=== PATIENT | male | born 1980 | race Caucasian/White ===

== ENCOUNTER 2022-08-25 14:30 | Outpatient (CLI) | payer MEDICAID, SELFPAY | END 2022-08-25 14:31 | disposition home or self-care (01) | LOC: SLEEP 08-26 15:21 | PROVIDERS: Visit Provider Nurse Practitioner Family | DX: R53.83 Other fatigue (principal); G47.10 Hypersomnia, unspecified | CPT/HCPCS: G0399 ==

== ENCOUNTER 2024-07-19 16:51 | Outpatient (CLI) | payer MEDICAID, SELFPAY ==
--- NOTE | 2024-07-19 16:59 | CT_ITS ---
WS: [id number] CT SINUSES TECHNIQUE: Noncontrast CT of the paranasal sinuses with coronal and sagittal reformatted images. CLINICAL INFORMATION: CHRONIC RHINITIS, DISORDERS OF NOSE AND NASAL SINUSES COMPARISON: None. DLP: 378.[address] scans at [facility] use at least one of these dose optimization techniques: automated e xposure control; mA and/or kV adjustment per patient size (includes targeted exams where dose is matc hed to clinical indication); or iterative reconstruction. FINDINGS: Mild LEFT RIGHT nasal septal deviation measuring 2 to 3 mm. Rightward directed nasal spur. Mild narro wing of the ostiomeatal units bilaterally which are patent. Bilateral Lee cells contribute to osti omeatal unit narrowing. Retention cyst inferior LEFT maxillary sinus measuring 10 mm. Maxillary sinus es are well aerated. Mild mucosal thickening in the ethmoid air cells. Frontal sinuses are well aerat ed. Retention cyst in the RIGHT sphenoid sinus measuring 12 mm. Mucosal thickening with opacification of the RIGHT sphenoid sinus ostia. Mild mucosal thickening with narrowing of the LEFT sphenoid sinus ost ia. Mastoid air cells are well aerated. Normal posterior nasopharynx. Normal parapharyngeal fat. Norm al pterygoid plates. Normal pterygopalatine fossa. CT/CT sinus wo con* [id number] IMPRESSION: 1. Mild LEFT RIGHT nasal septal deviation with a rightward directed spur. Nasa l septal deviation measures 2 to 3 mm. 2. Mild narrowing of the ostiomeatal units bilaterally with bilateral Lee c ells. 3. Dependent retention cyst LEFT maxillary sinus 2 mm. 4. Mild mucosal thickening ethmoid air cells. 5. Retention cyst RIGHT sphenoid sinus measuring 12 mm with opacification of t he RIGHT greater than LEFT sphenoid sinus ostia. 6. Mastoid air cells are well aerated.
== END 2024-07-19 16:52 | disposition home or self-care (01) ==
LOC: RAD 16:53
PROVIDERS: Visit Provider Otolaryngology
DX: J31.0 Chronic rhinitis (principal); J34.89 Other specified disorders of nose and nasal sinuses; J34.1 Cyst and mucocele of nose and nasal sinus
CPT/HCPCS: 70486

== ENCOUNTER 2024-12-25 07:49 | Oncology outpatient (recurring) (ONCR) | payer MEDICAID, SELFPAY | END 2024-12-27 23:59 | disposition home or self-care (01) | PROVIDERS: PCP Nurse Practitioner Family; Visit Provider Internal Medicine Medical Oncology | DX: Z53.9 Procedure and treatment not carried out, unspecified reason (principal) ==